=== PATIENT | male | born 1965 | race African-American/Black ===

== ENCOUNTER 2020-03-13 18:08 | Emergency (ER) | payer SELFPAY ==
[~2020-03-13] VITALS: Ht 188 cm; Wt 106.8 kg
[~2020-03-13 18:08] MED LIST: ACYC400T PO
[2020-03-13 18:10] VITALS: BP 126/58
[2020-03-13] MEDS ORDERED: METF-960 PO (18:19)
[2020-03-13] MEDS ORDERED: INSU100I26 SQ (18:24)
[2020-03-13] MEDS ORDERED: SPIR50 PO (18:24)
[2020-03-13] MEDS ORDERED: METO-558 PO (18:24)
[2020-03-13] MEDS ORDERED: DIGO125T84 PO (18:24)
== END 2020-03-13 18:57 | disposition home or self-care (01) ==
LOC: EMS 18:11
DX: Z20.828 Contact with and (suspected) exposure to other viral communicable diseases (principal); Z79.84 Long term (current) use of oral hypoglycemic drugs; Z79.899 Other long term (current) drug therapy
CPT/HCPCS: Z7502